=== PATIENT | female | born 1990 | race Two or more races ===

== ENCOUNTER 2017-07-13 17:55 | Emergency (ER) | payer MEDICAID ==
--- NOTE | 2017-07-13 18:13 | EDM.PDOC ---
<Dar Mercado - Last Filed: 07/13/17 18:39> ED HPI GENERAL MEDICAL PROBLEM - General Chief Complaint: Lower Extremity Injury/Pain Stated Complaint: POSSIBLE SPRAIN OF RIGHT ANKLE Time Seen by Provider: 07/13/17 18:12 Source of Information: Reports: Patient - History of Present Illness INITIAL COMMENTS - FREE TEXT/NARRATIVE: HISTORY AND PHYSICAL: History of present illness: []Patient's history began 2 months ago as she rolled her right ankle at that time she's been having some mild 3 out of 10 pain associated with that but is been able to bear weight, over the last couple of days she twisted her foot and ankle now is unable to bare weight other than toe-touch she is somewhat tender across the dorsum of her foot and has tenderness on the medial malleolus no bruising no swelling no fever nausea vomiting chills sweats no other injury On exam I can reproduce some pain with palpation of the plantar fascia/tendons, pain is not worse in the morning however it is worsened by walking and seems to be in the center of her foot, she is wearing flip-flops today Review of systems: As per history of present illness and below otherwise all systems reviewed and negative. Past medical history: As per history of present illness and as reviewed below otherwise noncontributory. Surgical history: As per history of present illness and as reviewed below otherwise noncontributory. Social history: No reported history of drug or alcohol abuse. Family history: As per history of present illness and as reviewed below otherwise noncontributory. Physical exam: HEENT: Atraumatic, normocephalic, pupils reactive, negative for conjunctival pallor or scleral icterus, mucous membranes moist, throat clear, neck supple, nontender, trachea midline. Lungs: Clear to auscultation, breath sounds equal bilaterally, chest nontender. Heart: S1S2, regular, negative for clicks, rubs, or JVD. Abdomen: Soft, nondistended, nontender. Negative for masses or hepatosplenomegaly. Negative for costovertebral tenderness. Pelvis: Stable nontender. Genitourinary: Deferred. Rectal: Deferred. Extremities: Atraumatic, negative for cords or calf pain. Neurovascular unremarkable. Neuro: Awake, alert, oriented. Cranial nerves II through XII unremarkable. Cerebellum unremarkable. Motor and sensory unremarkable throughout. Exam nonfocal. Right foot unaffected above the ankle she does have tenderness associated with the medial malleolus as well as pain over the dorsum of her foot there is no swelling or bruising redness warmth or exudate in her limb is neurovascularly intact I can reproduce some tenderness with pushing on the plantar fascia Diagnostics: Right foot 3 views Right ankle 3 views Therapeutics: []X-rays are pending at shift change. Likely to be signed out to Matias the follow-up x-rays and redirect Impression: Right foot pain/sprain Definitive disposition and diagnosis as appropriate pending reevaluation and review of above. right foot Pain Score (Numeric/FACES): 7 - Related Data Allergies Allergy/AdvReac Type Severity Reaction Status Date / Time No Known Allergies Allergy Verified 07/13/17 18:13 Home Meds: Home Meds . [No Known Home Meds] 07/13/17 [History] Review of Systems - Review of Systems Review Of Systems: ROS reveals no pertinent complaints other than HPI. ED EXAM, GENERAL - Physical Exam Exam: See Below Course - Vital Signs Last Recorded V/S: Last Vital Signs Temp 36.9 C 07/13/17 18:14 Pulse 82 07/13/17 19:13 Resp 16 07/13/17 18:14 BP 105/60 07/13/17 19:13 Pulse Ox 98 07/13/17 18:14 - Orders/Labs/Meds Orders: Active Orders 24 hr Category Date Time Status Ankle Min 3V Rt [CR] Stat Exams 07/13/17 17:58 Taken Foot Comp Min 3V Rt [CR] Stat Exams 07/13/17 18:33 Taken Labs: Laboratory Tests 07/13/17 Range/Units 18:20 Urine HCG, Qual NEGATIVE (NEGATIVE) Departure - Departure Time of Disposition: 18:38 Disposition: Still A Patient 30 Condition: Good Clinical Impression: Ankle sprain, Foot pain - Discharge Information Referrals: PCP,None [Primary Care Provider] - Forms: ED Department Discharge Additional Instructions: The following information is given to patients seen in the emergency department who are being discharged to home. This information is to outline your options for follow-up care. We provide all patients seen in our emergency department with a follow-up referral. The need for follow-up, as well as the timing and circumstances, are variable depending upon the specifics of your emergency department visit. If you don't have a primary care physician on staff, we will provide you with a referral. We always advise you to contact your personal physician following an emergency department visit to inform them of the circumstance of the visit and for follow-up with them and/or the need for any referrals to a consulting specialist. The emergency department will also refer you to a specialist when appropriate. This referral assures that you have the opportunity for follow-up care with a specialist. All of these measure are taken in an effort to provide you with optimal care, which includes your follow-up. Under all circumstances we always encourage you to contact your private physician who remains a resource for coordinating your care. When calling for follow-up care, please make the office aware that this follow-up is from your recent emergency room visit. If for any reason you are refused follow-up, please contact the [facility] Emergency Department at and asked to speak to the emergency department charge nurse. X-rays are negative for fracture which would be consistent with a soft tissue injury Please follow-up with your primary care provider in 2-3 days Return to ED as needed as discussed <Matias Buckley - Last Filed: 07/13/17 19:32> ED HPI GENERAL MEDICAL PROBLEM - History of Present Illness INITIAL COMMENTS - FREE TEXT/NARRATIVE: Addendum to add assumption of care from Dr. Mor Mercado. 4 disposition status post evaluation of radiographic studies. X-rays for right foot ankle without fracture as previous be determined. Patient with right foot pain/sprain Review of Systems - Review of Systems Review Of Systems: See Below
[2017-07-14 00:25] VITALS: BP 115/61
--- NOTE | 2017-07-15 15:17 | CR ---
EXAM DATE: 07/13/17 PATIENT'S AGE: 26 Patient: SREEDHAR CORONEL Facility: [place], [place] Site . Site : 1990 Study: XRay Extremity Right FOOT [id number]/19/2017 6:57:49 PM Ordering Physician: Aston Dodge Final Report: Right foot 3 VIEWS INDICATION: Pain. IMPRESSION: No visualized fracture. Alignments anatomic. Joint spaces unremarkable. Dictated by Umer Will MD @ Jul 13 2017 7:26PM (Electronic Signature) Report Signed by Proxy. [facility]
--- NOTE | 2017-07-15 15:18 | CR ---
EXAM DATE: 07/13/17 PATIENT'S AGE: 26 Patient: SREEDHAR CORONEL Facility: [place], [place] Site . Site : 1990 Study: XRay Extremity Right ANKLE [id number]/19/2017 6:58:50 PM Ordering Physician: Doctor Stovall Final Report: Right ankle 3 VIEWS INDICATION: Injury. IMPRESSION: No visualized fracture. Alignments anatomic. Joint spaces unremarkable. Dictated by Umer Will MD @ Jul 13 2017 7:25PM (Electronic Signature) Report Signed by Proxy. MARIA DEL CARMEN
== END 2017-07-13 19:50 | disposition home or self-care (01) ==
LOC: MW.ED 17:55
DX: S93.401A Sprain of unspecified ligament of right ankle, initial encounter (principal); X50.1XXA Overexertion from prolonged static or awkward postures, initial encounter
CPT/HCPCS: 73610-26-RT; 73610-RT; 73630-26-RT; 73630-RT; 81025; 99282; 99284